=== PATIENT | male | born 1975 | race African-American/Black ===

== ENCOUNTER 2021-05-15 19:23 | Emergency (ER) | payer BC ==
[~2021-05-15] VITALS: Ht 157.5 cm; Wt 65.8 kg
[2021-05-15] MEDS ORDERED: ACETAMINOPHEN 325 MG TAB ONE (22:12)
[2021-05-15 22:13] VITALS: BP 137/96
[2021-05-15] MEDS ORDERED: ACETAMINOPHEN 325 MG TAB PO ONE (22:15)
== END 2021-05-15 22:15 | disposition home or self-care (01) ==
LOC: ER 19:41
DX: R42 Dizziness and giddiness (principal); R51.9 Headache, unspecified; F41.9 Anxiety disorder, unspecified
CPT/HCPCS: 70450; 99283